=== PATIENT | male | born 1965 | race Caucasian/White ===

== ENCOUNTER → 2017-03-13 | Day surgery (SDC) | payer OTHER ==
[~2017-03-13] MED LIST: ALBUTEROL17 G1 IH; LOPRESSOR PO; NEXIUM PO; PAXIL10 MG PO; PRAVASTATIN SOD40 MG PO; ZESTRIL10 M1 PO; ZITHROMAX1 G/PKT PO
--- NOTE | ~2017-03-13 | OR ---
Unit #: [id number] #: [id number] Patient: NELSON ALMARAZ [id number] [address] [place], [place] [address] [id number] MR#: [id number] NAME: NELSON ALMARAZ ROOM: Date of Procedure: 03/13/2017 Admission Date: 03/13/2017 Surgeon: Akbar Song M.D. : 1965 Attending Physician: Akbar Song M.D. Referring Physician: Akbar Song M.D. Primary Care Physician: Roberto Lozano OPERATIVE REPORT PREOPERATIVE DIAGNOSES The patient has history of gastroesophageal reflux. In addition, he needs colorectal cancer screening. PROCEDURES PERFORMED Upper gastrointestinal endoscopy and biopsy as well as colonoscopy up to cecum and terminal ileum with excellent preparation and good visualization. POSTOPERATIVE DIAGNOSES For upper endoscopy; 1. Grade 1 distal erosive esophagitis. 2. Small hiatus hernia. 3. Rest of the examination up to third part of duodenum was normal. A biopsy was obtained from the antrum for CLOtest. For colonoscopy; 1. Localized sigmoid and descending colon diverticulosis. Otherwise, normal examination up to cecum and terminal ileum. The quality of the prep was excellent. No polyps were present or seen. RECOMMENDATIONS 1. Repeat colonoscopy in 10 years. 2. Nexium 40 mg p.o. daily to be continued on a long-term basis. SEDATION USED MAC. DESCRIPTION OF PROCEDURE Following detailed explanation of the potential risks and complications of upper endoscopy and a colonoscopy, namely perforation, bleeding, and complications related to sedation, the patient was brought to GI lab laid in the left lateral decubitus position. Lubricated tip of the Olympus video upper endoscope was passed through bite block into the proximal esophagus under direct vision. The entire esophageal mucosa was examined. The patient was noted to have grade 1 distal erosive esophagitis. The scope was then advanced into the gastric cavity and the latter was then insufflated. Mucosa of the fundus, body, and antrum was examined and mild antral erythema was noted. Pylorus was intubated with visualization of the normal duodenal bulb and second and third part of the duodenum. Upon withdrawal and retroflexion, incisura, cardia, and greater curve was examined and a biopsy obtained from the antrum for CLOtest. The scope was withdrawn in the distal esophagus. The entire esophageal mucosa was examined all the way up to pharynx, no additional findings noted. Unit #: [id number] #: [id number] Patient: NELSON ALMARAZ The examination table was then turned by 180 degrees and the patient was positioned for a colonoscopy. A digital rectal examination was performed, which was normal. Lubricated tip of the Olympus video colonoscope was inserted through the anus and advanced under direct vision. The scope was advanced and passed up to sigmoid into descending colon. Multiple medium-sized diverticula were noted in this area. The scope was then navigated all the way up to cecum with visualization of the cecal wall and the appendiceal orifice. Preparation was excellent with good visualization and photodocumentation was obtained. Last several inches of the terminal ileum was also visualized after intubation of the ileocecal valve and appeared normal. Successive segments of the colonic mucosa were examined upon withdrawal and appeared unremarkable. There being no polyps, mass lesions, or AVMs. Other than the diverticula noted earlier, no other abnormalities were found. The patient did not have any hemorrhoids at anal verge. The scope was then withdrawn and the patient was returned to the recovery area. He tolerated the procedure without any postprocedure complications. Dictated by... Marianela Bedoya/yocasta TD: 03/13/2017 09:32 JOB #: [id number] CC: Roberto Orozco M.D. OPERATIVE REPORT Page 1 of 1 X Akbar Song MD X PROCEDURE OPERATIVE NOTE
== END | disposition home or self-care (01) ==
LOC: COPS 07:37
DX: Z12.11 Encounter for screening for malignant neoplasm of colon (principal); K21.0 Gastro-esophageal reflux disease with esophagitis; K44.9 Diaphragmatic hernia without obstruction or gangrene; K57.30 Diverticulosis of large intestine without perforation or abscess without bleeding; I10 Essential (primary) hypertension; E78.5 Hyperlipidemia, unspecified; Z98.890 Other specified postprocedural states; Z79.899 Other long term (current) drug therapy
CPT/HCPCS: 87077; J2250